=== PATIENT | male | born 1990 | race Caucasian/White ===

== ENCOUNTER 2022-10-29 21:25 | Emergency (ER) | payer MEDICAID, OTHER ==
[~2022-10-29] VITALS: Ht 182.9 cm; Wt 72.6 kg
[2022-10-29 21:49] VITALS: BP 117/72
[2022-10-29] MEDS ORDERED: diphenhydrAMINE HCL 50 MG/ML VIAL IM ONE (22:30)
[2022-10-29] MEDS ORDERED: LORAZEPAM INJ 2 MG/ML VIAL IM ONE (22:30)
== END 2022-10-29 23:40 | disposition home or self-care (01) ==
LOC: ER 21:27
DX: F10.129 Alcohol abuse with intoxication, unspecified (principal); F17.200 Nicotine dependence, unspecified, uncomplicated; Z60.2 Problems related to living alone; Z88.0 Allergy status to penicillin; Z88.1 Allergy status to other antibiotic agents; Y90.9 Presence of alcohol in blood, level not specified

== ENCOUNTER 2023-08-05 21:50 | Emergency (ER) | payer OTHER ==
[~2023-08-05] VITALS: Ht 182.9 cm; Wt 72.6 kg
[2023-08-05 22:04] VITALS: TEMP 98.2
[2023-08-05] MEDS ORDERED: IV NS 0.9% 1,000 ML BAG IV ONE (23:00)
[2023-08-05 23:16] LABS: BASOPHILS % (AUTO) 0.3 % (0.0-2.0); EOSINOPHILS % (AUTO) 0.3 % (0.0-6.0); HEMATOCRIT 50 % (39-51); HEMOGLOBIN 17.2 g/dL (13.5-17.5); LYMPHOCYTES # (AUTO) 2.4 K/uL (0.8-4.8); LYMPHOCYTES % (AUTO) 26.9 % (20.0-44.0); MEAN CORPUSCULAR HEMOGLOBIN 32 PG (26.0-33.0); MEAN CORPUSCULAR HGB CONC 35 g/dl (31.0-36.0); MEAN CORPUSCULAR VOLUME 92 fL (80-96); MONOCYTES # (AUTO) 0.4 K/uL (0.1-1.30); MONOCYTES % (AUTO) 4.6 % (2.0-12.0); NEUTROPHILS % (AUTO) 67.9 % (43.0-81.0); PLATELET COUNT (AUTO) 342 K/uL (150-450); RED BLOOD CELL COUNT(AUTO) 5.43 MIL/uL (4.5-6.0); WHITE BLOOD COUNT (AUTO) 8.9 K/uL (4.3-11.0)
[2023-08-05 23:28] LABS: CALCIUM, SERUM 9.5 mg/dL (8.5-10.1); CARBON DIOXIDE 28 mmol/L (21-32); CHLORIDE 101 mmol/L (98-107); CREATININE 0.9 mg/dL (0.6-1.3); GLUCOSE 92 mg/dL (74-106); SODIUM SERUM 141 mmol/L (136-145); UREA NITROGEN, BLOOD 9 mg/dL (7-18)
[2023-08-05 23:34] LABS: ALANINE AMINOTRANSFERASE 13 U/L (12-78); ALBUMIN 5.1 g/dL (3.4-5.0); ALCOHOL, BLOOD 239 mg/dL (0-10); ALKALINE PHOSPHATASE 75 U/L (46-116); ASPARTATE AMINOTRANSFERASE 8 U/L (15-37); BILIRUBIN,DIRECT 0.1 mg/dL (0.0-0.2); BILIRUBIN,TOTAL 0.3 mg/dL (0.2-1.0); SALICYLATE 3.8 mg/dL (2.8-20.0); TOTAL PROTEIN, SERUM 9.3 g/dL (6.4-8.2)
[2023-08-05 23:37] LABS: APPEARANCE,URINE CLEAR (CLEAR); BILIRUBIN,URINE NEGATIVE (NEGATIVE); BLOOD, URINE NEGATIVE Ery/uL (NEGATIVE); COLOR,URINE YELLOW (YELLOW); KETONES,URINE NEGATIVE (NEGATIVE); LEUKOCYTE ESTERASE ,URINE NEGATIVE (NEGATIVE); NITRITE, URINE NEGATIVE (NEGATIVE); PH,URINE 5.5 (5.0-8.0); PROTEIN,URINE NEGATIVE (NEGATIVE); UGLUCOSE NEGATIVE (NEGATIVE); UROBILINOGEN,URINE 0.2 EU/dL (0.2)
[2023-08-05 23:44] LABS: ACETAMINOPHEN <10 ug/ml (10-30)
[2023-08-05 23:46] LABS: AMPHETAMINE, URINE NEGATIVE (NEGATIVE); BARBITURATE, URINE NEGATIVE (NEGATIVE); BENZODIAZEPINE, URINE NEGATIVE (NEGATIVE); CANNABINOID, URINE NEGATIVE (NEGATIVE); COCCAINE, URINE NEGATIVE (NEGATIVE); OPIATE, URINE NEGATIVE (NEGATIVE); PHENCYCLIDINE SCREEN,URINE NEGATIVE (NEGATIVE)
[2023-08-06] MEDS ORDERED: PHENOBARBITAL SODIUM 650 MG in IV NS 0.9% 100 ML IV ONE ×2
[2023-08-06] MEDS ORDERED: PHENOBARBITAL SODIUM 130 MG/ML VIAL ONE (00:05)
[2023-08-06] MEDS ORDERED: PHENOBARBITAL SODIUM 520 MG in IV NS 0.9% 100 ML IV ONE (00:30)
[2023-08-06] MEDS ORDERED: IV NS 0.9% 1,000 ML BAG IV ONE (05:00)
[2023-08-06] MEDS ORDERED: CHLO25CA22 PO (05:14)
[2023-08-06 06:55] VITALS: BP 110/75; O2SAT 99
== END 2023-08-06 06:56 | disposition home or self-care (01) ==
LOC: ER 22:01
DX: F10.239 Alcohol dependence with withdrawal, unspecified (principal); F10.229 Alcohol dependence with intoxication, unspecified; F17.200 Nicotine dependence, unspecified, uncomplicated; Z88.0 Allergy status to penicillin; Z88.8 Allergy status to other drugs, medicaments and biological substances; Z59.00 Homelessness unspecified; Y90.8 Blood alcohol level of 240 mg/100 ml or more
CPT/HCPCS: 99284; 96361 ×2; 85025; 80048; 80076; 81003; 36415; 80143; 80320; 80307; 96365; J7030 ×4; J2560 ×2; G0480